=== PATIENT | male | born 1970 | race Caucasian/White ===

== ENCOUNTER 2018-06-02 18:46 | Emergency (ER) | payer OTHER ==
[2018-06-02 18:55] VITALS: BP 120/78; PULSE 94; TEMP 98.6; BMI 25.7
--- NOTE | 2018-06-02 18:56 | PDOC ---
Rapid Medical Evaluation Time Seen by Provider: 06/02/18 18:53 Medical Evaluation: 06/02/18 18:53 I have performed a brief in-person evaluation of this patient. The patient presents with a chief complaint of:R shoulder pain after ? heavy lifting at work today. Works as a paediatrician Pertinent physical exam findings:Unremarkable I have ordered the following:nothing The patient will proceed to the ED for further evaluation. Discharge Disposition - Diagnosis Shoulder pain Qualifiers: Chronicity: acute Laterality: right Qualified Code(s): M25.511 - Pain in right shoulder - Referrals - Patient Instructions - Post Discharge Activity
--- NOTE | 2018-06-02 20:25 | PDOC ---
History of Present Illness - General Chief Complaint: Pain, Acute Stated Complaint: SHOULDER PAIN Time Seen by Provider: 06/02/18 18:53 - History of Present Illness Initial Comments: 06/02/18 20:22 48-year-old male without comorbidities presents for evaluation of right shoulder pain while at work today he states he was reaching back try to lift an object and he felt a sharp pain in the shoulder. Past History - Past Medical History Allergies/Adverse Reactions: Allergies Allergy/AdvReac Type Severity Reaction Status Date / Time No Known Allergies Allergy Verified 06/02/18 18:55 Home Medications: Ambulatory Orders Naproxen Sodium [Aleve] 440 mg PO BID 06/02/18 COPD: No - Suicide/Smoking/Psychosocial Hx Smoking History: Never smoked Review of Systems - Review of Systems Musculoskeletal: Yes: Joint Pain *Physical Exam - Vital Signs Last Vital Signs Temp Pulse Resp BP Pulse Ox 98.6 F 94 H 18 120/78 95 06/02/18 18:53 06/02/18 18:53 06/02/18 18:53 06/02/18 18:53 06/02/18 18:53 - Physical Exam Comments: 06/02/18 20:22 Right shoulder skin color and temperature are normal. He has full internal and external rotation passively without discomfort. He is unable to abduct and externally rotate actively. Unable to tolerate impingement maneuvers. Positive drop arm test. No gross sensorimotor deficits is neurovascularly intact. Moderate Sedation - Procedure Monitoring Vital Signs: Procedure Monitoring Vital Signs Temperature 98.6 F 06/02/18 18:53 Pulse Rate 94 H 06/02/18 18:53 Respiratory Rate 18 06/02/18 18:53 Blood Pressure 120/78 06/02/18 18:53 O2 Sat by Pulse Oximetry (%) 95 06/02/18 18:53 ED Treatment Course - RADIOLOGY Radiology Studies Ordered: Category Date Time Status SHOULDER-RIGHT [RAD] Stat Radiology 06/02/18 20:03 Taken Medical Decision Making - Medical Decision Making 06/02/18 20:23 X-rays of the right shoulder show no evidence of fracture trauma or destructive process *DC/Admit/Observation/Transfer Diagnosis at time of Disposition: Right shoulder strain Shoulder pain Qualifiers: Chronicity: acute Laterality: right Qualified Code(s): M25.511 - Pain in right shoulder - Discharge Dispostion Disposition: HOME Condition at time of disposition: Stable Decision to Admit order: No - Referrals Referrals: Rodrigo Huynh DO [Staff Physician] - - Patient Instructions Printed Discharge Instructions: DI for Rotator Cuff Injury, Rotator Cuff Injury Additional Instructions: Tylenol and Motrin as directed for pain. Follow-up with orthopedic surgery in 1- 2 days for further evaluation and treatment options. As discussed orthopedic surgery will call you for an appointment within the next day. Return to the emergency room for worsening symptoms. - Post Discharge Activity
== END 2018-06-02 20:46 | disposition home or self-care (01) ==
LOC: JERFT 18:46
DX: S46.911A Strain of unspecified muscle, fascia and tendon at shoulder and upper arm level, right arm, initial encounter (principal); X58.XXXA Exposure to other specified factors, initial encounter; Y93.89 Activity, other specified; Y92.89 Other specified places as the place of occurrence of the external cause; M25.511 Pain in right shoulder
CPT/HCPCS: 73030-TC-RT-FY; 99281-25